=== PATIENT | male | born 1960 | race Caucasian/White ===

== ENCOUNTER 2017-05-06 19:41 | Emergency (ER) | payer BC, OTHER ==
[~2017-05-06] VITALS: Ht 172.7 cm; Wt 86.7 kg
[2017-05-06 20:05] VITALS: Ht 172.7 cm; Wt 86.7 kg
[2017-05-06] MEDS ORDERED: LIDOCAINE 1% (MDV) 20 ML INJ SC ONE (22:30)
[2017-05-06] MEDS ORDERED: CEFTRIAXONE 250 MG INJ IM ONE (22:30)
[2017-05-06] MEDS ORDERED: AZITHROMYCIN 250 MG TAB PO ONE (22:30)
--- NOTE | 2017-05-06 22:59 | RADRPT ---
PROCEDURE: Scrotal ultrasound CLINICAL INDICATION: Testicular pain and swelling. TECHNIQUE: Smith scale and color Doppler imaging of the scrotum was performed. COMPARISON: None available FINDINGS: Right testicle: 4.6 x 2.3 x 2.3 cm. Normal in echogenicity with no focal mass lesion. Increased [place] w. Right epididymis: Enlarged with increased flow. Left testicle: 3.9 x 2.5 x 2.3 cm. Normal size and echogenicity. Normal flow. Left epididymis: Unremarkable. Hydrocele: Large right hydrocele with multiple septations and debris. Large left hydrocele with dif fuse low level internal echoes. Varicocele: None. IMPRESSION: 1. Right-sided epididymitis and orchitis. 2. Large right complicated hydrocele with septations and echogenic debris. 3. Large left hydrocele with diffuse echogenic debris, but no septation. RPTAT: HLBP .León Vásquez MD, Date Time Electronically viewed and signed by .León Vásquez MD, MD on 05/06/2017 22:59 .P/
[2017-05-06] MEDS ORDERED: TAMS-14 PO (23:39)
[2017-05-06] MEDS ORDERED: DOXY100T20 PO (23:39)
[2017-05-06] MEDS ORDERED: NAPR-260 PO (23:39)
[2017-05-06] MEDS ORDERED: HYDR-906 PO (23:39)
--- NOTE | 2017-05-07 17:38 | ERD ---
ER Documentation Chief Complaint Chief Complaint right testicle pain. Hx: "Epididymitis" HPI Patient is a 56-year-old male with past medical history of varicocele and epididymitis presenting to the emergency department complains of right testicle pain and swelling for the past 3 days. Symptoms worse with urination and on palpation. He reports an indurated feel the right testicle. He is sexually active with multiple partners. He states he does use condoms consistently. Symptoms are worsening. He has taken no medication for relief of symptoms. ROS All systems reviewed and are negative except as per history of present illness. Medications Home Meds Active Scripts Tamsulosin Hcl* (Flomax*) 0.4 Mg Cap.er.24h, 0.4 MG PO BID, #20 CAP Prov:UGO HUMPHRIES PA-C 05/06/17 Doxycycline Hyclate* (Doxycycline Hyclate*) 100 Mg Tablet.dr, 100 MG PO BID for 10 Days, #20 TAB Prov:UGO HUMPHRIES PA-C 05/06/17 Naproxen* (Naprosyn*) 500 Mg Tablet, 500 MG PO BID Y for PAIN AND/OR INFLAMMATION, #30 TAB Prov:UGO HUMPHRIES PA-C 05/06/17 Hydrocodone/Acetaminophen ([place] 5-325 Tablet) 1 Each Tablet, 1 TAB PO Q6H Y for PAIN, #7 TAB Prov:UGO HUMPHRIES PA-C 05/06/17 Allergies Allergies: Coded Allergies: No Known Allergy (Unverified , 05/06/17) PMhx/Soc Hx Miscellaneous Medical Probl: Yes (HIV) Hx Alcohol Use: No Hx Substance Use: Yes (marijuana) Hx Tobacco Use: Yes Smoking Status: Former smoker Physical Exam Vitals Vital Signs Date Time Temp Pulse Resp B/P Pulse Ox O2 Delivery O2 Flow Rate FiO2 05/06/17 20:05 98.6 94 18 153/88 98 Physical Exam Const: Nontoxic, well-appearing male in no acute distress. Head: Atraumatic Eyes: Normal Conjunctiva ENT: Normal External Ears, Nose and Mouth. Neck: Full range of motion..~ No meningismus. Skin: No petechiae or rashes Back: No midline or flank tenderness Exam: Scrotum: Significantly enlarged on the right side, there is no significant erythema or warmth noted Testes/Epid: Tender diffusely of the right testicle. There is market induration of the right testicle. Both testicles are descended. Cremaster: Reflex intact Lymph: No inguinal lymphadenopathy Discharge: None Ext: No cyanosis, or edema Neur: Awake and alert Psych: Normal Mood and Affect Results 24 hrs Current Medications Medications (Trade) Dose Ordered Sig/Billie Route PRN Reason Start Time Stop Time Status Last Admin Dose Admin Lidocaine (Xylocaine 1% (Mdv) 20 ml) 20 ml ONCE ONCE SC 05/06/17 22:30 05/06/17 22:31 DC 05/06/17 22:40 Azithromycin (Zithromax) 1,000 mg ONCE ONCE PO 05/06/17 22:30 05/06/17 22:31 DC 05/06/17 22:21 Ceftriaxone Sodium (Rocephin) 250 mg ONCE ONCE IM 05/06/17 22:30 05/06/17 22:31 DC 05/06/17 22:39 Procedures/MDM Patient is a 56-year-old male presenting to the emergency department with complaints of right testicle pain. The right testicle significantly enlarged compared to the left testicle. It is indurated. There is diffuse tenderness to palpation. Testicular ultrasound showed right-sided epididymitis and orchitis. Large right complicated hydrocele with septations and echogenic debris. Large left hydrocele with diffuse echogenic debris but no septation. Patient declined medication for pain in the department. Given his sexual history, he was treated empirically for chlamydia and gonorrhea with I am Rocephin and p.o. azithromycin. He was informed of his imaging results and was given a copy. He was advised that he will need to have prompt outpatient follow -up with urologist. He is to return here immediately for any new or worsening symptoms. He agreed with the discharge plan a diagnosis. No evidence of life-threatening pathology at time of discharge. Pt/family in agreement with discharge plan/diagnosis. Pt/family advised to return immediately with any new or worsening symptoms. Follow-up with primary care physician within the next 1-2 days. Disclaimer: Inadvertent spelling and grammatical errors are likely due to EHR/ dictation software use and do not reflect on the overall quality of patient care. Also, please note that the electronic time recorded on this note does not necessarily reflect the actual time of the patient encounter. PROCEDURE: Scrotal ultrasound CLINICAL INDICATION: Testicular pain and swelling. TECHNIQUE: Smith scale and color Doppler imaging of the scrotum was performed. COMPARISON: None available FINDINGS: Right testicle: 4.6 x 2.3 x 2.3 cm. Normal in echogenicity with no focal mass lesion. Increased flow. Right epididymis: Enlarged with increased flow. Left testicle: 3.9 x 2.5 x 2.3 cm. Normal size and echogenicity. Normal flow. Left epididymis: Unremarkable. Hydrocele: Large right hydrocele with multiple septations and debris. Large left hydrocele with diffuse low level internal echoes. Varicocele: None. IMPRESSION: 1. Right-sided epididymitis and orchitis. 2. Large right complicated hydrocele with septations and echogenic debris. 3. Large left hydrocele with diffuse echogenic debris, but no septation. RPTAT: HLBP .León Vásquez MD, MD Date Time Electronically viewed and signed by .León Vásquez MD, on 05/06/2017 22:59 Departure Diagnosis: Primary Impression: Orchitis Additional Impression: Epididymitis Condition: Fair Patient Instructions: What Are Epididymitis and Orchitis?, Epididymitis Referrals: SARBJIT WILKINSON MD,PERNELL CONTRERAS,MAC MCCORD,ETHAN SILVA,ANNA MARIE CLARK [facility] YOU HAVE RECEIVED A MEDICAL SCREENING EXAM AND THE RESULTS INDICATE THAT YOU DO NOT HAVE A CONDITION THAT REQUIRES URGENT TREATMENT IN THE EMERGENCY DEPARTMENT. FURTHER EVALUATION AND TREATMENT OF YOUR CONDITION CAN WAIT UNTIL YOU ARE SEEN IN YOUR DOCTORS OFFICE WITHIN THE NEXT 1-2 DAYS. IT IS YOUR RESPONSIBILITY TO MAKE AN APPOINTMENT FOR FOLOW-UP CARE. IF YOU HAVE A PRIMARY DOCTOR --you should call your primary doctor and schedule an appointment IF YOU DO NOT HAVE A PRIMARY DOCTOR YOU CAN CALL OUR PHYSICIAN REFERRAL HOTLINE AT IF YOU CAN NOT AFFORD TO SEE A PHYSICIAN YOU CAN CHOSE FROM THE FOLLOWING [facility] [address] [facility]. [facility] [address] [facility] [address] [facility] [address] [facility] [address] [facility]. [facility] [address] Additional Instructions: Follow-up with urologist as soon as possible. Follow up with your PCP within the next 1-3 days for a repeat evaluation. If you require a referral to a specialist, your Primary Care Provider may be able to provide this for you. In most patient cases, a referral is not required. If you have further questions regarding this matter, please ask your Primary Care Provider. Return the the emergency department immediately if symptoms worsen or change. If you have any questions regarding medications, ask your pharmacist or us before you leave. If any adverse reactions, occur while taking your medications, discontinue the treatment and return to the emergency department immediately. If any new or worsening symptoms, uncontrolled fevers, or other unexplained symptoms occur, return to the emergency department immediately. Take your medications as directed, and complete the entire course of treatment. UGO HUMPHRIES PA-C May 07, 2017 17:38
[2017-05-09 10:31] LABS: ADD UMIC YES; UR ASCORBIC ACID NEGATIVE (NEGATIVE); UR BILIRUBIN (Dip) NEGATIVE (NEGATIVE); UR BLOOD (Dip) NEGATIVE (NEGATIVE); UR CLARITY CLEAR (CLEAR); UR COLOR YELLOW (YELLOW); UR GLUCOSE (Dip) NEGATIVE (NEGATIVE); UR KETONES (Dip) NEGATIVE (NEGATIVE); UR LEUKOCYTE ESTERASE (Dip) 1+ Leu/ul (NEGATIVE); UR NITRITE (Dip) NEGATIVE (NEGATIVE); UR RBC 0 /HPF (0-5); UR SPECIFIC GRAVITY (Dip) 1.009 (1.003-1.030); UR TOTAL PROTEIN (Dip) NEGATIVE (NEGATIVE); UR UROBILINOGEN (Dip) NEGATIVE (NEGATIVE)
== END 2017-05-06 23:55 | disposition home or self-care (01) ==
LOC: FTE 19:41
DX: N45.2 Orchitis (principal); N45.1 Epididymitis; Z87.891 Personal history of nicotine dependence
CPT/HCPCS: 76870; 81001; 87591; 96372; 99285; J0696